=== PATIENT | female | born 1990 | race Caucasian/White ===

== ENCOUNTER 2018-12-05 17:22 | Inpatient (IN) | payer BC ==
[~2018-12-05 17:22] MED LIST: Bupivacaine/Epinephrine 0.25% 30 ML VIAL ONE
[2018-12-05 18:09] VITALS: BMI 33.3
[2018-12-05 18:45] LABS: Amnisure Test RUPTURE DETECTED (No Rupture)
[2018-12-05 18:46] LABS: Amnisure Internal Control QC ACCEPTABLE (ACCEPTABLE)
[2018-12-05 18:57] LABS: Bilirubin Negative (Negative); Blood, Urine Large (Negative); Clarity CLOUDY (Clear); Glucose, Urine (Dipstick) Negative (Negative); Leukocyte Large (Negative); Nitrite Negative (Negative); Protein, Urine (Dipstick) Negative (Neg-Trace); Specific Gravity, Urine 1.004 (1.002-1.036); pH, Urine 6.5 (5.0-9.0)
[2018-12-05 18:59] LABS: Bacteria/HPF None Seen HPF (None Seen); Hyaline Casts/LPF 0-3 HYALINE CAST LPF (0-3 Hyaline); Squamous Epithelial 0-3 HPF (0-3); WBC/HPF 21-50 HPF (0-3)
[2018-12-05] MEDS ORDERED: Betamet Acet/Betamet Na Ph 30 MG/5 ML VIAL IM SCH (19:00)
--- NOTE | 2018-12-05 19:13 | PDOC.FPROB ---
FMR OB H&P: HPI - History of Present Illness Chief Complaint: Urine leaking Indentification: 28 yo @ 34.3 weeks History of Present Illness: 28 yo @ 34.3 weeks comes in w/ c/c of leakage of urine. Reports waking up at 3:00 in the morning with large pool of what she thought was urine. Continued to have leakage. [facility] where they told her she had a UTI and gave her abx. She continued to have leakage of urine yesterday and throughout today. Reports having some lower abdominal pain. Denies any fever or chills. Primary Care Physician: Puma FMR OB H&P: Current - Care : 1 Para: 0 Gestational age: 34.3 - OB Labs Blood type: unknown RH: unknown Antibody Screen: unknown HIV: unknown HepBsAg: unknown Quad screen: unknown Gonorrhea: unknown Chlamydia: unknown GBS: unknown FMR OB H&P: History - Past Medical History PMH: None - OB History OB History: Had Placenta Previa early in which has since resolved - BULK FOLDER History BULK FOLDER History: None - Surgical History Sx History: None - Social History Social History: Denies any smoking, alcohol or illicit drug use - Family History Family History: Insignificant FMR OB H&P: Medications - Current Allergies/Adverse Reactions: Allergies Allergy/AdvReac Type Severity Reaction Status Date / Time No Known Allergies Allergy Unverified 12/05/18 18:04 FMR OB H&P: ROS - Review of Systems General: denies: fever/chills, fatigue Eyes: denies: vision changes ENT: denies: nasal congestion Respiratory: denies: cough, congestion, shortness of breath Gastrointestinal: reports: abdominal pain, nausea. denies: cramping, vomiting, diarrhea, constipation Genitourinary (Female): reports: incontinence, vaginal discharge. denies: vaginal pain, vaginal bleeding, contractions Musculoskeletal: denies: pain, stiffness Integumentary: denies: itching, rash Hematologic/Lymphatic: denies: prolonged or excessive bleeding Psychological: denies: depression, anxiety FMR OB H&P: Vital Signs - Maternal Vital signs: BP 116/72 P 112 Po2 96% on RA T98.3 F - Heart Tones Baseline: 140 Variability: moderate Acceleration: present Deceleration: absent Category: category 1 [place] contractions every: Irregular FMR OB H&P: Physical Exam - Physical Exam General: NAD, awake, alert and oriented HEENT: normocephalic and atraumatic Neck: supple Heart: RRR, normal S1/S2, no murmurs/rubs/gallops General: CTAB, no respiratory distress, good air movement Abdomen: soft, gravid, non-tender, bowel sound present Musculoskeletal: normal gait and station, pulses present Neurological: sensation to pain,touch and proprioception grossly normal Skin: no rash, capillary refill <2 seconds Psychiatric: intact recent and remote memory (x) - Pelvic Exam Presentation: Vertex FMR OB H&P: Results - Labs Lab results: Laboratory Results - last 24 hr 12/05/18 12/05/18 18:21 18:27 Urine Color YELLOW Urine Clarity CLOUDY Urine pH 6.5 Ur Specific [place] 1.004 Urine Protein Negative Urine Glucose (UA) Negative Urine Ketones 15 H Urine Blood Large H Urine Nitrite Negative Urine Bilirubin Negative Urine Urobilinogen 1.0 Ur Leukocyte Esterase Large H Urine RBC 4-6 Urine WBC 21-50 H Ur Squamous Epith Cells 0-3 Urine Bacteria None Seen Hyaline Casts 0-3 HYALINE CAST Amnio Swab Test RUPTURE DETECTED H FMR OB H&P: A/P - Problem List (1) premature rupture of membranes Current Visit: Yes Status: Acute Code(s): O42.919 - PRETRM JIMMY ROM, UNSP TIME BETW RUPT AND ONST LABR, UNSP TRI (2) UTI (urinary tract infection) Current Visit: Yes Status: Acute Disposition: 28 yo @ 34.3 weeks here with Rupture of membranes -We will administer betamethasone. -We will administer Ampicillin 2g q6hrs and Azithromycin 500mgg today and 250mg daily. -Will get ultrasound assessing presentation, growth and JAYSON. -Currently the NICU is full. UTI -Pt U/A LE+ and WBC+. -She is currently getting abx tx per above. -She has a culture from yesterday that is preliminary Discussion: Date/Time: 12/05/181909 This H&P was discussed with [] and [] who agree with the above documentation and plan. Addendum - Attending - Attending Attestation Date/Time: 12/05/181940 I personally evaluated the patient and discussed the management with Dr. Price. 28 yo WF G1 at 34 weeks c/o LOF since yesterday. Amnisure is positive. USG confirms decreased JAYSON and vtx presentation. Steroids and ABX for latency ordered. Dr. Bartholomew discussing transfer status with Dr. Franco. I agree with the History, Examination, Assessment and Plan documented above.
[2018-12-05] MEDS ORDERED: Azithromycin 250 MG TAB PO SCH (19:15)
[2018-12-05] MEDS ORDERED: Acetaminophen 500 MG TAB PO SCH (19:15)
[2018-12-05] MEDS ORDERED: Lidocaine 1% (PF) 30 ML VIAL SC PRN (19:25)
[2018-12-05] MEDS ORDERED: Ondansetron PF 4 MG/2 ML Vial IVP PRN ×2 (19:25→22:01)
[2018-12-05] MEDS ORDERED: Butorphanol Tartrate 1 MG/ML VIAL SLOW IVP PRN (19:25)
[2018-12-05] MEDS ORDERED: Promethazine HCl 25 MG/ML VIAL IM PRN ×2 (19:25→22:01)
[2018-12-05] MEDS ORDERED: Lactated Ringer's 1,000 ML IV SCH (19:30)
[2018-12-05] MEDS ORDERED: Fentanyl 4 mcg/Bup 0.1% Cadd 100 ML ONE (19:43)
[2018-12-05 19:51] LABS: Hemoglobin 11.8 g/dL (12.0-16.0); Mean Corpuscular HGB CONC 32.1 g/dL (32.0-36.0); Mean Corpuscular Hemoglobin 26.4 pg (27.0-31.0); Mean Corpuscular Volume 82.2 fL (78.0-98.0); Mean Platelet Volume 7.5 fL (7.4-10.4); Platelet Count 197 thou/uL (130-400); RBC Distribution Width 12.5 % (11.5-14.5); Red Blood Cell (RBC) Count 4.48 mill/uL (4.20-5.40); White Blood Cell (WBC) Count 20.7 thou/uL (4.8-10.8)
--- NOTE | 2018-12-05 19:57 | ULT ---
HISTORY: Premature rupture of membranes. Evaluate size and dates. Multiple longitudinal and transverse images of an intrauterine is obtained using multihertz curvilinear transducer. Real time, color flow, and spectral waveform Doppler analysis used to evalua te the fetus. Images demonstrate a viable intrauterine with the fetus in a cephalic presentation. Cardiac activity measures 141 beats per minute. Amniotic fluid index is markedly reduced measuring 2.3 cm. anatomic evaluation did not include measurement of head circumference as the head had already b een engaged and there is significant molding of the head. Abdominal circumference: 299 mm giving a gestational age of 33 weeks, 6 days. Femur length measures 66 mm equals 33 weeks, 6 days. Head circumference measures 267 mm equals 29 weeks, 1 day. Estimated gestational age is 32 weeks, 2 days with an estimated date of delivery of 01/28/19. Estimate d weight is 2340 grams plus or minus 374 grams. IMPRESSION: Oligohydramnios. Cardiac activity is confirmed. POS: [facility]
[2018-12-05] MEDS ORDERED: Lidocaine 1.5%/Epinephrine 1:200,000 5 ML AMPUL IJ ONE ×2 (20:11→20:13)
[2018-12-05] MEDS ORDERED: Fentanyl 100 MCG/2 ML VIAL ONE (20:11)
[2018-12-05 20:45] LABS: Syphilis Antibody Nonreactive (Nonreactive); Syphilis Antibody Index 0.03 S/CO (<1.00 Non-Reactive)
[2018-12-05] MEDS ORDERED: Ampicillin 2 GM in Sodium Chloride 0.9% 100 ML IVPB SCH (21:00)
[2018-12-05] MEDS ORDERED: Eucerin (Mineral Oil/Petrolatum,White) 30 gm Jar TOP PRN (22:01)
[2018-12-05] MEDS ORDERED: Naloxone HCl 0.4 mg/ml Vial IVP PRN ×2 (22:01)
[2018-12-05] MEDS ORDERED: Acetaminophen 325 MG TAB PO PRN (22:01)
[2018-12-05] MEDS ORDERED: diphenhydrAMINE 50 MG/ML VIAL IVP PRN (22:01)
[2018-12-05] MEDS ORDERED: ePHEDrine/0.9% NaCl/PF SYRINGE 50 mg/10 ml SLOW IVP PRN (22:01)
[2018-12-05] MEDS ORDERED: Lactated Ringer's 500 ML IV PRN (22:01)
[2018-12-05] MEDS ORDERED: Fentanyl 4 mcg/Bupivacaine 0.1% Cassette 100 ML EPIDURAL SCH (22:15)
[2018-12-05] MEDS ORDERED: Communication Order-Pharmacy FS SCH (22:15)
[2018-12-05 22:19] LABS: HBSAg Index 0.33 S/CO (0-0.99); Hep B Surf Ag Non-Reactive S/CO (NonReactive)
[2018-12-05] MEDS ORDERED: NS / Oxytocin 40 units/1000ml 1,000 ML ONE ×2 (22:22→23:31)
[2018-12-06] MEDS ORDERED: Misoprostol 200 MCG TAB VAG PRN (01:54)
[2018-12-06] MEDS ORDERED: Bisacodyl 10 MG SUPP PR PRN ×2 (01:54)
[2018-12-06] MEDS ORDERED: Milk Of Magnesia 30 ML UDCUP PO PRN ×2 (01:54)
[2018-12-06] MEDS ORDERED: Methylergonovine 0.2 MG/ML VIAL IM PRN (01:54)
[2018-12-06] MEDS ORDERED: Zolpidem Tartrate 5 MG TAB PO PRN (01:54)
[2018-12-06] MEDS ORDERED: Lanolin Ointment 7 GM TUBE TOP PRN ×2 (01:54)
[2018-12-06] MEDS ORDERED: Promethazine HCl 25 MG/ML VIAL IM PRN (01:54)
[2018-12-06] MEDS ORDERED: HYDROcodone/Acetaminophen 5/325 mg Tablet PO PRN ×2 (01:54)
[2018-12-06] MEDS ORDERED: Benzocaine-Menthol 82.5 ML CAN TOP PRN ×2 (01:54)
[2018-12-06] MEDS ORDERED: NS / Oxytocin 40 units/1000ml 1,000 ML IV SCH ×2 (01:54)
[2018-12-06] MEDS ORDERED: diphenhydrAMINE 25 MG CAP PO PRN (01:54)
[2018-12-06] MEDS ORDERED: Methylergonovine 0.2 MG TAB PO PRN (01:54)
[2018-12-06] MEDS ORDERED: Preparation H Ointment 28 GM TUBE PR PRN ×2 (01:54)
[2018-12-06] MEDS ORDERED: Ibuprofen 800 MG TAB PO PRN (01:54)
[2018-12-06] MEDS ORDERED: Ibuprofen 800 MG TAB PO SCH (06:00)
[2018-12-06] MEDS ORDERED: Ferrous Sulfate 325 MG TAB PO SCH ×2 (08:00)
[2018-12-06 08:55] VITALS: BP 102/57; TEMP 97.7
[2018-12-06] MEDS ORDERED: Docusate Calcium (SURFAK) 240 MG CAP PO SCH ×2 (09:00)
[2018-12-06] MEDS ORDERED: Adacel (T-DAP) 0.5 ML SYRINGE IM ONE (09:00)
[2018-12-06] MEDS ORDERED: Measles/Mumps/Rubella 10 MCG/0.5 ML VIAL SC ONE (09:00)
[2018-12-06] MEDS ORDERED: Prenatal Vitamin 1 TAB PO SCH (09:00)
[2018-12-06] MEDS ORDERED: Azithromycin 250 MG TAB PO SCH (09:00)
--- NOTE | 2018-12-06 12:31 | PDOC.PP ---
Post Progress Note Post Day #: 1 PO intake tolerated: yes Flatus: yes Ambulation: yes Vital Signs (12 hours) Temp Pulse Resp BP Pulse Ox 12/06/18 08:00 97.7 F 82 20 102/57 L 97 12/06/18 04:39 97.8 F 91 16 99/57 L 12/06/18 02:45 98.6 F 101 H 18 105/57 L 12/06/18 01:40 98.2 F 110 H 18 108/52 L 98 Weight Weight 194 lb - Physical Examination General: NAD Cardiovascular: no m/r/g Respiratory: clear to auscultation bilaterally, non-labored breathing Abdominal: lochia, no distention Extremities: negative homans (B) Neurological: no gross focal deficits Psychiatric: A&Ox3, normal affect (Pt requesting DC so she can travel to [place] where her baby was transferred.) Result Diagrams: 12/05/18 19:44 Additional Labs: Post Labs Blood Type B POSITIVE 12/05/18 21:43 Hep Bs Antigen Non-Reactive S/CO (NonReactive) 12/05/18 19:44
--- NOTE | 2018-12-07 10:11 | DN ---
DATE OF PROCEDURE: 12/06/2018 Ms. Alonzo presented to L&D and was initially evaluated by Dr. Wilcox and his team. She was found to be ruptured. She was then found to be 6 cm, 90%, and -1 station on exam in active labor. It was unsafe to transfer this patient and she was delivered at [facility]. PREOPERATIVE DIAGNOSIS: Intrauterine at 34 weeks and 3 days with labor with spontaneous rupture of membranes at 34 weeks and 3 days. POSTOPERATIVE DIAGNOSIS: Intrauterine at 34 weeks and 3 days with labor with spontaneous rupture of membranes at 34 weeks and 3 days. PROCEDURE PERFORMED: Spontaneous vaginal delivery over a first-degree laceration of the perineum with epidural anesthesia in place. FINDINGS: Viable female infant, weighing 1905 g or 4 pounds 3 ounces. Apgars 8 and 9. QUANTITATIVE BLOOD LOSS: 100 mL. COMPLICATIONS: None. PROCEDURE IN DETAIL: The patient presented to [facility] where she was admitted to the labor and delivery service. The patient underwent a normal and uneventful labor with normal cervical dilatation until she was found to be completely dilated. She was then allowed to push and was able to bring the baby down and delivered the baby in a vertex presentation without difficulties. Once the head delivered in occiput anterior position, the shoulders followed spontaneously along with the rest of the baby's body. Once out the baby's mouth and nose were bulb suctioned. The cord was clamped and cut and baby was handed to waiting attendants. Cord blood was collected. Gentle fundal massage was performed and the placenta delivered intact without problems. Hemostasis was assured. Quantitative blood loss was calculated. Inspection of the cervix, vaginal vault, and perineum did not reveal any lacerations needing suturing. Once again, hemostasis was within normal limits and the patient was allowed to recover in the labor and delivery room. Baby went to nursery. Job ID: [id number] [facility]
== END 2018-12-06 12:50 | disposition home or self-care (01) | DRG 806 ==
LOC: L&D/OP 17:22 → L&D 19:49 → 3SW 12-06 01:42
PROVIDERS: ADMIT Obstetrics & Gynecology; ATTEND Obstetrics & Gynecology
PROC: 10E0XZZ Delivery of Products of Conception, External Approach (ICD-10-PCS; principal; 2018-12-05)
DX: O42.013 Preterm premature rupture of membranes, onset of labor within 24 hours of rupture, third trimester (principal); O23.43 Unspecified infection of urinary tract in pregnancy, third trimester; Z37.0 Single live birth; Z3A.34 34 weeks gestation of pregnancy; O70.0 First degree perineal laceration during delivery
CPT/HCPCS: 36415; 51701; 76805; 81003; 81015; 84112; 85027; 86780; 86850; 86900; 86901; 87086; 87340; 99285; J0290; J0702; J3010; J3490